=== PATIENT | male | born 1965 | race African-American/Black ===

== ENCOUNTER 2021-06-24 19:07 | Emergency (ER) | payer OTHER ==
[~2021-06-24] VITALS: Ht 182.9 cm; Wt 90.7 kg
[2021-06-24] MEDS ORDERED: LOTENSIN20 MG PO (19:19)
[2021-06-24] MEDS ORDERED: IBU600 MG PO (20:14)
== END 2021-06-24 20:30 | disposition home or self-care (01) ==
LOC: ED 19:07
DX: T14.8XXA Other injury of unspecified body region, initial encounter (principal); V69.9XXA Occupant (driver) (passenger) of heavy transport vehicle injured in unspecified traffic accident, initial encounter; I10 Essential (primary) hypertension; Z88.0 Allergy status to penicillin
CPT/HCPCS: 99284; A9270